=== PATIENT | male | born 1960 | race Caucasian/White ===

== ENCOUNTER → 2020-09-17 14:14 | Outpatient (BNVA) | payer BC, SELFPAY | PROVIDERS: Family Provider Electrodiagnostic Medicine; PCP Electrodiagnostic Medicine; Visit Provider Nurse Practitioner Family | DX: Z20.828 Contact with and (suspected) exposure to other viral communicable diseases (principal) | CPT/HCPCS: 87635 ==

== ENCOUNTER 2020-12-12 19:49 | Emergency (ER) | payer BC, SELFPAY ==
[2020-12-12 20:01] VITALS: BP 146/78; PULSE 119; RESP 16; TEMP 39.3; O2SAT 94; BMI 27.8
[2020-12-12 20:38] VITALS: BP 123/73; PULSE 103; RESP 18; O2SAT 94
--- NOTE | 2020-12-12 20:41 | XRR_ITS ---
PROCEDURE INFORMATION: Exam: XR Chest Exam date and time: 12/12/2020 9:00 PM Age: 60 years old Clinical indication: Fever TECHNIQUE: Imaging protocol: XR of the chest. Views: 1 view. COMPARISON: No relevant prior studies available. FINDINGS: Lungs: Unremarkable. No consolidation. Pleural spaces: Unremarkable. No pleural effusion. No pneumothorax. Heart/Mediastinum: Unremarkable. No cardiomegaly. Bones/joints: Partial visualization of surgical screws fixating proximal left humerus. No acute thoracic fractures. XR/XR chest 1V portable [id number] IMPRESSION: No acute chest findings.
[2020-12-12 20:47] LABS: Basophils % 0.3 %; Hematocrit 45.7 % (42.0-52.0); Hemoglobin 15.2 g/dL (11.7-16.6); Lymphocytes # 0.9 10^3/uL (0.8-4.8); Lymphocytes % 21.9 %; Mean Corpuscular HGB Conc 33.3 g/dL (30.0-36.0); Mean Corpuscular Volume 87.2 fL (80-94); Mean Platelet Volume 9.1 fL (7.4-10.4); Monocytes # 0.3 10^3/uL (0.2-0.9); Monocytes % 8.3 %; Neutrophils # 2.72 10^3/uL (1.8-7.7); Neutrophils % 68.2 %; Nucleated Red Blood Cells % 0 %; Platelet Count 141 10^3/cmm (130-400); Red Blood Count 5.24 10^6/uL (4.1-5.3); Red Cell Distribution Width 12.7 % (12.1-15.1)
[2020-12-12] MEDS: sodium chloride 0.9% 500 ML IV (20:59)
[2020-12-12] MEDS: ketorolac 30 mg/mL INJ IVP (21:00)
[2020-12-12 21:09] VITALS: O2SAT 95
[2020-12-12 21:09] LABS: Lactate (Lactic Acid level) 0.8 mmol/L (0.5-2.2)
[2020-12-12 21:15] LABS: Procalcitonin 0.06 ng/mL (0-0.5)
[2020-12-12 21:29] LABS: ABG PCO2 39.5 mmHg (35-45); Arterial Blood Gas Hematocrit 45.8 % (42-52); Base Excess ABG -0.1 mmol/L (-2.0-2.0); Blood Gas Allen Test Pos; Blood Gas Sample Site Brachial, left; Blood Gas Sample Type Arterial; Carboxyhemoglobin 0.6 %THgb (0.4-20.1); HCO3 ABG 24.6 mmol/L (22-26); HGB O2 Sat 94.1 % (95-100); Methemoglobin 0.7 % (0.4-1.5); Oxygen Device ROOM AIR; PO2 ABG 72.3 mmHg (80.0-100.0); Total Hemoglobin 14.9 g/dL (14-18)
[2020-12-12 21:34] LABS: Add Urine Microscopic? YES; Bilirubin Urine 1+ (Negative); Blood Urine Neg (Negative); Glucose Urine UA 2+ (Normal); Ketones Urine 1+ (Negative); Leukocyte Esterase Urine Negative (Negative); Nitrate Urine Negative (Negative); Protein Urine Trace (Negative); Urine Appearance Clear (CLEAR); Urine Color Yellow (Yellow); Urobilinogen Urine 1 mg/dL (Negative); pH Urine 5 (5-7)
[2020-12-12 21:36] LABS: Alanine Aminotransferase 26 U/L (0-41); Albumin Level 3.7 g/dL (3.5-5.2); Alkaline Phosphatase 45 IU/L (40-130); Anion Gap 17.1 (5-19); Aspartate Amino Transferase 34 U/L (0-40); Blood Urea Nitrogen 14 mg/dL (6-20); C Reactive Protein 36.5 mg/L (0.0-4.9); Calcium 7.8 mg/dL (8.5-10.5); Carbon Dioxide 23 mmol/L (22-29); Chloride 102 mmol/L (98-107); Globulin 2.8 g/dL (1.3-4.6); Glomerular Filtration Rate 86.4 mL/min (90-130); Glucose 100 mg/dL (65-115); Osmolality Calculated 287 mOsm/kg (285-295); Potassium 4.1 mmol/L (3.5-5.1); Sodium 138 mmol/L (136-145); Total Bilirubin 0.2 mg/dL (0.15-1.2); Total Protein 6.5 g/dL (6.6-8.7)
[2020-12-12 21:49] LABS: Add Urine Culture? No; Bacteria Urine TRACE /hpf; Hyaline Casts Urine 0-4 /lpf; Mucus Urine 2+ /hpf; RBC Urine 0-4 /hpf (0-2); Squamous Epithelial Cell Urine 0-4 /hpf (0-5); WBC Urine 0-4 /hpf (0-5)
[2020-12-12] MEDS: dexamethasone 4 mg/mL INJ 6 MG IVP (22:14)
--- NOTE | 2020-12-12 22:17 | W.ED.COVID ---
HPI - COVID General: Chief Complaint: COVID symptoms Stated Complaint: Covid + monday Time Seen by Provider: 12/12/20 20:51 Source: patient Mode of arrival: EMS Limitations: no limitations Triage information: Has fever, cough or shortness of breath. Exposure to COVID + person last 14 days History of Present Illness: HPI Narrative: 60-year-old male who developed symptoms of a fever, body aches, loss of taste and smell about 5 days ago. He had fever of up to 104 ?F. The next day he got tested for COVID-19 and tested positive. His and son also tested positive for the illness. He continues to run fevers that only mildly responsive to antipyretics. No difficulty breathing but he endorses a cough. He has been checking his oxygen saturations and the lowest it has gotten is 92%. The patient has no past medical history, has no history of COPD, has no history of hypertension, has no history of cardiac disease or lung disease. Because he continues to run a fever and feel bad he came to the emergency department to be evaluated. complaint: known COVID positive Prior covid testing: yes, results known Prior testing date: 12/09/20 COVID 19 common symptoms: positive fever(s), chills, cough, non-productive cough, fatigue, body aches, loss of sense of smell and/or taste and nasal congestion; negative productive cough, dyspnea, headache(s), throat pain, nausea, vomiting or diarrhea COVID 19 other sytmptoms: negative requiring oxygen, requiring more oxygen, respiratory distress, cyanosis, confusion or new neurological complaints Onset (ago): day(s) (4) Severity: moderate Treatment prior to arrival: acetaminophen and ibuprofen COVID Results: Nasal/Oral Coronavirus 2019 PCR Not detected 09/17/20 14:14 09/17/20 Review of Systems General: Reports: 10 or more systems reviewed and unremarkable except in HPI and below Const: Reports: fever(s), chills, body aches and fatigue ENMT: Reports: nasal congestion; Denies: throat pain Resp: Reports: non-productive cough; Denies: dyspnea or productive cough GI: Denies: nausea, vomiting or diarrhea Neuro: Denies: headache(s) or confusion Physical Exam Const: COMMON NORMALS: no acute distress, average body habitus, patient oriented x3, no limitations, healthy appearing, alert and well nourished HENMT: COMMON NORMALS: normocephalic, atraumatic and moist oral mucous membranes HEAD & SCALP: normocephalic and atraumatic Neck/C-Spine: COMMON NORMALS: no meningeal signs and no JVD Resp: COMMON NORMALS: normal respiratory effort, No retractions, No use of accessory muscles, clear to auscultation bilaterally and percussion normal AUSCULTATION: clear to auscultation bilaterally PERCUSSION: percussion normal Cardio: COMMON NORMALS: no JVD, regular rate, regular rhythm, S1 normal heart sound present, S2 normal heart sound present, No gallops present (Cardio), No clicks present (Cardio), No murmurs present (Cardio), No rub (Cardio) and Peripheral pulses 2+ throughout RATE: regular rate RHYTHM: regular rhythm HEART SOUNDS: S1 normal heart sound present and S2 normal heart sound present PERIPHERAL PULSES: Peripheral pulses 2+ throughout GI: COMMON NORMALS: Normal to inspection, nondistended, normoactive bowel sounds present, Soft to palpation, non-tender, No hepatosplenomegaly present, no masses and no bruits PALPATION: Yes Soft to palpation and Yes No hepatosplenomegaly present Extremity: COMMON NORMALS: normal to inspection, full ROM, capillary refill normal, no calf tenderness and no pedal edema Neuro: COMMON NORMALS: patient oriented x3 SENSORIUM/ORIENTATION: Yes alert MENINGEAL SIGNS: Yes no meningeal signs Skin: COMMON NORMALS: no rashes or lesions noted, no wounds, turgor normal, no jaundice, no petechiae and no mottling GENERAL SKIN EXAM: no rashes or lesions noted and turgor normal Course Reevaluation(s): Reevaluation #1: Discussed his lab and imaging findings with him, labs unremarkable. Chest x-ray unremarkable. Also discussed that he does not meet criteria for monoclonal antibody treatments. He will therefore be discharged home with a prescription for oral steroids. He voiced understanding and is in agreement with the plan. Time: 22:17 Vital Signs: Vital signs: Vital Signs Temperature 101.5 F H 12/12/20 22:20 Pulse Rate 95 12/12/20 22:20 Respiratory Rate 18 12/12/20 22:20 Blood Pressure 125/79 12/12/20 22:20 Pulse Oximetry 95 12/12/20 22:20 MDM - COVID MDM Narrative: Medical decision making narrative: 60-year-old male was diagnosed with COVID-19 4 days ago, symptoms started 5 days ago. Evaluation here does not show anything concerning, pulse oximetry has been reading 94% on room air throughout his ED stay. He is not requiring oxygen. Unfortunately he does not meet criteria for monoclonal antibody as he has no chronic illness, BMI does not qualify. He is therefore discharged home on conservative measures and with a prescription for dexamethasone. He will follow-up with his primary care provider. Medical Records: Attestation: I reviewed the patient's medical records. Lab Data: Attestation: I reviewed the patient's lab results. Labs: Lab Results 12/12/20 12/12/20 12/12/20 Range/Units 20:35 20:35 20:35 WBC 4.0 (4.0-10.0) 10^3/ uL RBC 5.24 (4.1-5.3) 10^6/u L Hgb 15.2 (11.7-16.6) g/dL Hct 45.7 (42.0-52.0) % MCV 87.2 (80-94) fL MCH 29.0 (28.0-34.0) pg MCHC 33.3 (30.0-36.0) g/dL RDW 12.7 (12.1-15.1) % Plt Count 141 (130-400) 10^3/c mm MPV 9.1 (7.4-10.4) fL Neut % (Auto) 68.2 % Lymph % (Auto) 21.9 % [place] % (Auto) 8.3 % Eos % (Auto) 1.0 % Baso % (Auto) 0.3 % Neut # (Auto) 2.72 (1.8-7.7) 10^3/u L Lymph # (Auto) 0.9 (0.8-4.8) 10^3/u L [place] # (Auto) 0.3 (0.2-0.9) 10^3/u L Eos # (Auto) 0.0 (0.0-0.8) 10^3/u L Baso # (Auto) 0.0 (0.0-0.1) 10^3/u L Nucleated RBC % (a uto) 0 % Nucleated RBCs # 0.0 /100WBC Specimen Type Sample Site ABG pH (7.35-7.45) ABG pCO2 (35-45) mmHg ABG pO2 (80.0-100.0) mmH g ABG HCO3 (22-26) mmol/L ABG Base Excess (-2.0-2.0) mmol/ L Sree Test Hematocrit (42-52) % Hgb O2 Saturation (95-100) % Carboxyhemoglobin (0.4-20.1) %THgb Methemoglobin (0.4-1.5) % Total Hemoglobin (14-18) g/dL O2 Delivery Device FiO2 % Training Assistant ID Sodium 138 (136-145) mmol/L Potassium 4.1 (3.5-5.1) mmol/L Chloride 102 (98-107) mmol/L Carbon Dioxide 23 (22-29) mmol/L Anion Gap 17.1 (5-19) BUN 14 (6-20) mg/dL Creatinine 0.9 (0.7-1.2) mg/dL GFR Calculation 86.4 L (90-130) mL/min Glucose 100 (65-115) mg/dL Calculated Osmolal ity 287 (285-295) mOsm/k g Lactate 0.8 (0.5-2.2) mmol/L Calcium 7.8 L (8.5-10.5) mg/dL Total Bilirubin 0.2 (0.15-1.2) mg/dL AST 34 (0-40) U/L ALT 26 (0-41) U/L Alkaline Phosphata se 45 (40-130) IU/L C-Reactive Protein 36.5 H (0.0-4.9) mg/L Total Protein 6.5 L (6.6-8.7) g/dL Albumin 3.7 (3.5-5.2) g/dL Globulin 2.8 (1.3-4.6) g/dL Procalcitonin 0.06 (0-0.5) ng/mL Urine Color (Yellow) Urine Appearance (CLEAR) Urine pH (5-7) Ur Specific Gravit y (1.005-1.030) Urine Protein (Negative) Urine Glucose (UA) (Normal) Urine Ketones (Negative) Urine Blood (Negative) Urine Nitrate (Negative) Urine Bilirubin (Negative) Urine Urobilinogen (Negative) mg/dL Ur Leukocyte Fartun ase (Negative) Urine RBC (0-2) /hpf Urine WBC (0-5) /hpf Ur Squamous Epith Cells (0-5) /hpf Amorphous Sediment Urine Bacteria (NONE) /hpf Hyaline Casts /lpf Urine Mucus /hpf 12/12/20 12/12/20 Range/Units 21:18 21:26 WBC (4.0-10.0) 10^3/ uL RBC (4.1-5.3) 10^6/u L Hgb (11.7-16.6) g/dL Hct (42.0-52.0) % MCV (80-94) fL MCH (28.0-34.0) pg MCHC (30.0-36.0) g/dL RDW (12.1-15.1) % Plt Count (130-400) 10^3/c mm MPV (7.4-10.4) fL Neut % (Auto) % Lymph % (Auto) % [place] % (Auto) % Eos % (Auto) % Baso % (Auto) % Neut # (Auto) (1.8-7.7) 10^3/u L Lymph # (Auto) (0.8-4.8) 10^3/u L [place] # (Auto) (0.2-0.9) 10^3/u L Eos # (Auto) (0.0-0.8) 10^3/u L Baso # (Auto) (0.0-0.1) 10^3/u L Nucleated RBC % (a uto) % Nucleated RBCs # /100WBC Specimen Type Arterial Sample Site Brachial, left ABG pH 7.40 (7.35-7.45) ABG pCO2 39.5 (35-45) mmHg ABG pO2 72.3 L (80.0-100.0) mmH g ABG HCO3 24.6 (22-26) mmol/L ABG Base Excess -0.1 (-2.0-2.0) mmol/ L Sree Test Pos Hematocrit 45.8 (42-52) % Hgb O2 Saturation 94.1 L (95-100) % Carboxyhemoglobin 0.6 (0.4-20.1) %THgb Methemoglobin 0.7 (0.4-1.5) % Total Hemoglobin 14.9 (14-18) g/dL O2 Delivery Device Room air FiO2 21.0 % Training Assistant ID Jlg Sodium (136-145) mmol/L Potassium (3.5-5.1) mmol/L Chloride (98-107) mmol/L Carbon Dioxide (22-29) mmol/L Anion Gap (5-19) BUN (6-20) mg/dL Creatinine (0.7-1.2) mg/dL GFR Calculation (90-130) mL/min Glucose (65-115) mg/dL Calculated Osmolal ity (285-295) mOsm/k g Lactate (0.5-2.2) mmol/L Calcium (8.5-10.5) mg/dL Total Bilirubin (0.15-1.2) mg/dL AST (0-40) U/L ALT (0-41) U/L Alkaline Phosphata se (40-130) IU/L C-Reactive Protein (0.0-4.9) mg/L Total Protein (6.6-8.7) g/dL Albumin (3.5-5.2) g/dL Globulin (1.3-4.6) g/dL Procalcitonin (0-0.5) ng/mL Urine Color Yellow (Yellow) Urine Appearance Clear (CLEAR) Urine pH 5 (5-7) Ur Specific Gravit y 1.020 (1.005-1.030) Urine Protein Trace (Negative) Urine Glucose (UA) 2+ (Normal) Urine Ketones 1+ H (Negative) Urine Blood Neg (Negative) Urine Nitrate Negative (Negative) Urine Bilirubin 1+ H (Negative) Urine Urobilinogen 1 H (Negative) mg/dL Ur Leukocyte Fartun ase Negative (Negative) Urine RBC 0-4 H (0-2) /hpf Urine WBC 0-4 H (0-5) /hpf Ur Squamous Epith Cells 0-4 H (0-5) /hpf Amorphous Sediment Not Reportable Urine Bacteria Trace (NONE) /hpf Hyaline Casts 0-4 H /lpf Urine Mucus 2+ /hpf Imaging Data: CXR: Attestation: I personally reviewed and interpreted this imaging study as follows: Radiologist's impression: [employer] [place] [address] XRay Report Signed Patient: Tucker Tellez #: [id number] : 2Acc#:[id number] Age/Sex: 60 / MADM Date: 12/12/20 Loc: [facility]/Bed: Attending Dr: Ordering Provider/Ordering MD: Rodney Flores DO Date of Service: 12/12/20 Procedure(s): XR chest 1V portable [id number] Accession Number(s): [id number] Report Number: [id number] PROCEDURE INFORMATION: Exam: XR Chest Exam date and time: 12/12/2020 9:00 PM Age: 60 years old Clinical indication: Fever TECHNIQUE: Imaging protocol: XR of the chest. Views: 1 view. COMPARISON: No relevant prior studies available. FINDINGS: Lungs: Unremarkable. No consolidation. Pleural spaces: Unremarkable. No pleural effusion. No pneumothorax. Heart/Mediastinum: Unremarkable. No cardiomegaly. Bones/joints: Partial visualization of surgical screws fixating proximal left humerus. No acute thoracic fractures. XR/XR chest 1V portable [id number] IMPRESSION: No acute chest findings. Dictated By:Nic Emanuel Signed By:Fritz Emanuel Date/Time:12/12/202204 DD/ 02 COVID Results: Nasal/Oral Coronavirus 2019 PCR Not detected 09/17/20 14:14 09/17/20 Monoclonal Antibody Treatments Inclusion/Exclusion Criteria weight >/= 40 kg and + direct Sars-Cov-2 test less than 7-10 days ago age not >/= 65, BMI not >/= 35, does not have diabetes, does not have CKD, not receiving immunosuppressive therapy, does not have immunosuppressive disease, not >/= 55 with hypertension, not >/= 55 with diabetes, not >/= 55 with COPD/lung disease, not 12-17y with BMI >/= 85th percentile, not 12-17y with heart disease, not 12-17y with sickle cell disease, not 12-17y with neurodevelopemental d/o, not 12-17y with asthma/RAD/lung disease and not 12-17y w/ medical artist dependence not requiring hospitalization, not requiring oxygen (if not chronically on oxygen) and no increase oxygen requirement (if chronically on oxygen) Plan for treatment Does not meet criteria (DO NOT GIVE) Discharge Plan Discharge Patient Disposition: Home Clinical Impression: COVID-19 Condition: Stable Prescriptions: New dexamethasone 6 mg tablet 6 mg PO DAILY Qty: 5 RF: 0 Discharge Orders: Discharge ED (Routine); Ordered 12/12/20 Ordered By: Amanda Ann Referrals: Nader Gray DO [Primary Care Provider] - 1-3 days Discharge Diet: Usual diet Discharge Activity: Increase activity as tolerated Patient Instructions: Viral Syndrome (ED) Activity Restrictions/Additional Instructions: Return for any new or worsening symptoms. Follow-up with your primary care provider within 3 days. You may follow-up with your primary care provider via telemedicine. Take the steroid as prescribed. Continue to check your oxygen levels at home if your oxygen saturation drops below 90% please return to the emergency department to be evaluated as you may need hospital admission or oxygen therapy. Coding Level of Care Code ED Territory Representative for Hillary Castillo
[2020-12-12 22:20] VITALS: BP 125/79; PULSE 95; RESP 18; TEMP 38.6; O2SAT 95
== END 2020-12-12 22:44 | disposition home or self-care (01) ==
PROVIDERS: Emergency Medicine; Emergency Provider Family Medicine; PCP Electrodiagnostic Medicine
DX: U07.1 COVID-19 (principal)
CPT/HCPCS: 36600; 71045; 80053; 81001; 82805; 83605; 84145; 85025; 86140; 96361; 96374; 96375; 99283; J1100; J1885; J7040

== ENCOUNTER 2020-12-18 14:47 | Emergency (ER) | payer BC, SELFPAY ==
[2020-12-18] VITALS (9 sets, daily range): BP systolic 121–139; BP diastolic 77–96; PULSE 89–120; RESP 16–18; TEMP 37.2–37.8; O2SAT 88–98; BMI 26.4
--- NOTE | 2020-12-18 16:08 | XRR_ITS ---
PROCEDURE INFORMATION: Exam: XR Chest Exam date and time: 12/18/2020 4:12 PM Age: 60 years old Clinical indication: Cough and dyspnea and fever; Additional info: Dyspnea/fever/ covid+ TECHNIQUE: Imaging protocol: XR of the chest. Views: 1 view. COMPARISON: CR (CHEST, ) 12/12/2020 8:58 PM FINDINGS: Lungs: Mild nonspecific coarsening of the interstitial markings. Minimal ground-glass infiltrates in the periphery of the lungs, left worse than right. Pleural spaces: Unremarkable. No pleural effusion. No pneumothorax. Heart/Mediastinum: No cardiomegaly. Bones/joints: Unremarkable. XR/XR chest 1V portable [id number] IMPRESSION: 1. Mild nonspecific coarsening of the interstitial markings. Minimal ground-glass infiltrates in the periphery of the lungs, left worse than right. Pulmonary findings are nonspecific, but are compatible with the diagnosis of COVID-19 pneumonia. 2. Lung findings are new/increased when compared to 12/12/2020.
--- NOTE | 2020-12-18 16:09 | ECG_ITS ---
[facility] Test Date: 2020-12-18 Pat Name: Tucker Tellez Department: Room: Gender: Male Line Locator: : 1960 Requested By: Alex Yarbrough Order Number: [id number] Chavis MD: Vamsi Moody M.D. Measurements Intervals Ute Rate: 120 P: 40 UT: 136 QRS: 76 QRSD: 104 T: 39 QT: 303 QTc: 429 Interpretive Statements SINUS TACHYCARDIA ABNORMAL RHYTHM ECG No previous ECG available for comparison Electronically Signed On 12-18-2020 19:13:43 CDT by Vamsi Moody M.D. [email or web address]
--- NOTE | 2020-12-18 16:21 | W.ED.COVID ---
HPI - COVID General: Chief Complaint: COVID symptoms Stated Complaint: POSITIVE FOR COVID Time Seen by Provider: 12/18/20 16:05 Triage information: Has fever, cough or shortness of breath. No known COVID + exposure last 14 days History of Present Illness: HPI Narrative: The patient is a 60-year-old male on his 10th day of having Covid symptoms who comes to the ER complaining of continued productive cough, fever, dehydration, posttussive vomiting. He did not get the antibody because he did not have any comorbidities at his age. He has not been eating or drinking the past few days. He was given a prescription for steroids which she said did not help. No antibiotic. He says he is lost 25 pounds in the past 10 days since his positive test. He was satting 92% in triage however on the walk to the room he dipped to 88% and was placed on 2 L oxygen. MD complaint: known COVID positive Prior covid testing: yes, results known COVID 19 common symptoms: positive fever(s), cough, productive cough, dyspnea, fatigue, body aches, loss of sense of smell and/or taste and nausea; negative headache(s), throat pain or nasal congestion COVID 19 other sytmptoms: positive requiring oxygen; negative chest pain Onset (ago): day(s) (10) Severity: moderate Treatment prior to arrival: acetaminophen (At 6 AM this morning) COVID Results: Nasal/Oral Coronavirus 2019 PCR Not detected 09/17/20 14:14 09/17/20 Review of Systems General: Reports: 10 or more systems reviewed and unremarkable except in HPI and below Const: Reports: fever(s), body aches and fatigue Eyes: Denies: change in vision, blurry vision or eye redness ENMT: Denies: throat pain, swelling of lips/tongue, ear or mastoid pain or nasal congestion Card: Denies: chest pain, palpitations, irregular heart rhythm, edema, dyspnea on exertion or orthopnea Resp: Reports: dyspnea and productive cough GI: Reports: nausea : Denies: flank pain, urinary frequency or urinary urgency Musc: Denies: neck pain, back pain, extremity pain, joint pain, joint redness, limited range of motion or muscle weakness Skin/Breast: Denies: rash, pruritus, erythema, skin pain or skin tenderness Neuro: Denies: headache(s) Psych: Denies: anxiety or depression Endo: Denies: polyuria All/Imm: Denies: urticaria, throat swelling or tongue swelling Physical Exam Const: COMMON NORMALS: no acute distress, average body habitus, patient oriented x3, no limitations, healthy appearing, alert and well nourished GENERAL APPEARANCE: cooperative, comfortable, well kempt and well developed ORIENTATION/CONSCIOUSNESS: Yes awake, Yes oriented to person, Yes oriented to place and Yes oriented to time OTHER: Febrile HENMT: COMMON NORMALS: normocephalic, external ears normal and Normal external nose present HEAD & SCALP: normal to inspection and normocephalic NOSE: Normal external nose present EXTERNAL EAR: Yes external ears normal MOUTH: Normal oral and palatal mucosa present THROAT: posterior oropharynx normal Eye: COMMON NORMALS: Equal, round and reactive pupils present and EOMs intact bilaterally GENERAL EYE: appearance normal, both eyes and all related structures PUPIL: Yes Equal, round and reactive pupils present Neck/C-Spine: COMMON NORMALS: full ROM, no lymphadenopathy, no meningeal signs and no JVD GENERAL: Yes normal visual inspection Lymph: LYMPHATIC: no lymphadenopathy noted Chest: COMMONS NORMALS: normal inspection of the chest and normal palpation of entire chest wall Resp: COMMON NORMALS: normal respiratory effort, No retractions, No use of accessory muscles, clear to auscultation bilaterally and percussion normal EFFORT & INSPECTION: Yes able to speak in complete sentences AUSCULTATION: clear to auscultation bilaterally PERCUSSION: percussion normal Cardio: COMMON NORMALS: no JVD, regular rhythm, S1 normal heart sound present, S2 normal heart sound present and Peripheral pulses 2+ throughout RATE: tachycardic RHYTHM: regular rhythm HEART SOUNDS: S1 normal heart sound present and S2 normal heart sound present PERIPHERAL PULSES: Peripheral pulses 2+ throughout GI: COMMON NORMALS: Normal to inspection, nondistended, normoactive bowel sounds present, Soft to palpation, non-tender and no masses INSPECTION: Yes normal to inspection PALPATION: Yes Soft to palpation : COMMON NORMALS: Yes no CVA tenderness BLADDER/KIDNEY EXAM: Yes no CVA tenderness Back/Pelvis: COMMON NORMALS: no CVA tenderness, thoracic and lumbar spine normal to inspection, no thoracic nor lumbar tenderness and thoraco-lumbar ROM normal Extremity: COMMON NORMALS: normal to inspection, full ROM, capillary refill normal, no joint enlargement and no pedal edema GENERAL: Yes normal exam except as noted Neuro: COMMON NORMALS: patient oriented x3, CN's II-XII intact bilaterally, moves all extremities, no focal motor deficits, no sensory deficits noted and gait normal SENSORIUM/ORIENTATION: Yes alert, Yes oriented to person, Yes oriented to place and Yes oriented to time MENINGEAL SIGNS: Yes no meningeal signs Psych: COMMON NORMALS: mental status grossly normal, Normal thought process present, cooperative, normal affect and speech normal APPEARANCE: Yes well kempt ATTITUDE: Yes calm SPEECH: Yes normal speech THOUGHT PROCESS: Normal thought process present Skin: COMMON NORMALS: no rashes or lesions noted GENERAL SKIN EXAM: no rashes or lesions noted Course Vital Signs: Vital signs: Vital Signs Temperature 99 F 12/18/20 18:42 Pulse Rate 90 12/18/20 20:37 Respiratory Rate 18 12/18/20 20:37 Blood Pressure 121/81 12/18/20 20:37 Pulse Oximetry 96 12/18/20 20:37 MDM - COVID MDM Narrative: Medical decision making narrative: The patient is on his 10th day of Covid symptoms and has swabbed positive. He had been giving a steroid pack earlier in his illness with no improvement of his symptoms. He comes in complaining of continued fever and has not been eating or drinking well the past couple days. He is dehydrated. He was given IV fluids, Tylenol and his fever did go down and his symptoms did improve significantly. He will be given azithromycin and a Medrol Dosepak as his chest x-ray did show Covid pneumonia. CT angiogram negative for significant findings. Lab Data: Labs: Lab Results 12/18/20 12/18/20 12/18/20 Range/Units 16:54 16:54 16:54 WBC 4.6 (4.0-10.0) 10^3/ uL RBC 5.22 (4.1-5.3) 10^6/u L Hgb 14.9 (11.7-16.6) g/dL Hct 45.3 (42.0-52.0) % MCV 86.8 (80-94) fL MCH 28.5 (28.0-34.0) pg MCHC 32.9 (30.0-36.0) g/dL RDW 12.5 (12.1-15.1) % Plt Count 317 (130-400) 10^3/c mm MPV 8.9 (7.4-10.4) fL Neut % (Auto) 65.8 % Lymph % (Auto) 22.7 % [place] % (Auto) 10.0 % Eos % (Auto) 0.4 % Baso % (Auto) 0.2 % Neut # (Auto) 3.04 (1.8-7.7) 10^3/u L Lymph # (Auto) 1.1 (0.8-4.8) 10^3/u L [place] # (Auto) 0.5 (0.2-0.9) 10^3/u L Eos # (Auto) 0.0 (0.0-0.8) 10^3/u L Baso # (Auto) 0.0 (0.0-0.1) 10^3/u L Nucleated RBC % (a uto) 0 % Nucleated RBCs # 0.0 /100WBC D-Dimer (0-0.59) ug/mIFE U Sodium 136 (136-145) mmol/L Potassium 4.1 (3.5-5.1) mmol/L Chloride 102 (98-107) mmol/L Carbon Dioxide 25 (22-29) mmol/L Anion Gap 13.1 (5-19) BUN 12 (6-20) mg/dL Creatinine 0.6 L (0.7-1.2) mg/dL GFR Calculation 137.9 H (90-130) mL/min Glucose 101 (65-115) mg/dL Calculated Osmolal ity 282 L (285-295) mOsm/k g Lactic Acid (0.5-2.2) mmol/L Calcium 8.2 L (8.5-10.5) mg/dL Total Bilirubin 0.5 (0.15-1.2) mg/dL AST 53 H (0-40) U/L ALT 54 H (0-41) U/L Alkaline Phosphata se 44 (40-130) IU/L Troponin T Baselin e 13 (0-15) ng/L Troponin T 120 Min [place] (0-15) ng/L Delta Troponin T (0-10) ABS# Total Protein 6.5 L (6.6-8.7) g/dL Albumin 3.4 L (3.5-5.2) g/dL Globulin 3.1 (1.3-4.6) g/dL 12/18/20 12/18/20 12/18/20 Range/Units 17:50 18:38 18:38 WBC (4.0-10.0) 10^3/ uL RBC (4.1-5.3) 10^6/u L Hgb (11.7-16.6) g/dL Hct (42.0-52.0) % MCV (80-94) fL MCH (28.0-34.0) pg MCHC (30.0-36.0) g/dL RDW (12.1-15.1) % Plt Count (130-400) 10^3/c mm MPV (7.4-10.4) fL Neut % (Auto) % Lymph % (Auto) % [place] % (Auto) % Eos % (Auto) % Baso % (Auto) % Neut # (Auto) (1.8-7.7) 10^3/u L Lymph # (Auto) (0.8-4.8) 10^3/u L [place] # (Auto) (0.2-0.9) 10^3/u L Eos # (Auto) (0.0-0.8) 10^3/u L Baso # (Auto) (0.0-0.1) 10^3/u L Nucleated RBC % (a uto) % Nucleated RBCs # /100WBC D-Dimer 0.63 H (0-0.59) ug/mIFE U Sodium (136-145) mmol/L Potassium (3.5-5.1) mmol/L Chloride (98-107) mmol/L Carbon Dioxide (22-29) mmol/L Anion Gap (5-19) BUN (6-20) mg/dL Creatinine (0.7-1.2) mg/dL GFR Calculation (90-130) mL/min Glucose (65-115) mg/dL Calculated Osmolal ity (285-295) mOsm/k g Lactic Acid 0.8 (0.5-2.2) mmol/L Calcium (8.5-10.5) mg/dL Total Bilirubin (0.15-1.2) mg/dL AST (0-40) U/L ALT (0-41) U/L Alkaline Phosphata se (40-130) IU/L Troponin T Baselin e (0-15) ng/L Troponin T 120 Min [place] 16.55 H (0-15) ng/L Delta Troponin T 3.55 (0-10) ABS# Total Protein (6.6-8.7) g/dL Albumin (3.5-5.2) g/dL Globulin (1.3-4.6) g/dL COVID Results: Nasal/Oral Coronavirus 2019 PCR Not detected 09/17/20 14:14 09/17/20 Discharge Plan Discharge Patient Disposition: Home Clinical Impression: COVID-19, Pneumonia Condition: Stable Prescriptions: New azithromycin 500 mg tablet 500 mg PO DAILY 7 Days RF: 0 albuterol sulfate 90 mcg/actuation HFA aerosol inhaler 2 inh inhalation Q6H PRN (Reason: shortness of breath or wheezing) 30 Days RF: 0 Medrol (Sam) 4 mg tablets,dose pack See Rx Instructions .ROUTE .COMPLEX Qty: 21 RF: 0 No Action promethazine-DM 6.25-15 mg/5 mL syrup 5 ml PO Q4H PRN (Reason: NAUSEA/VOMITING.) RF: 0 amitriptyline 50 mg tablet 50 mg PO DAILY@2100 RF: 0 naproxen 500 mg tablet 500 mg PO BID@0600,1800 RF: 0 Discharge Orders: Discharge ED (Routine); Ordered 12/18/20 Ordered By: Alex Yarbrough Other Ambulatory Orders: DME: Oxygen (Order) Location: None Selected Ordered By: Alex Yarbrough Referrals: Nader Gray DO [Primary Care Provider] - Discharge Diet: Advance as tolerated Discharge Activity: Resume usual activity Patient Instructions: Bacterial Pneumonia (ED), Opioid Safety Activity Restrictions/Additional Instructions: You continue to suffer from COVID-19 and have developed pneumonia from it. Please take the azithromycin as directed and use the albuterol to help you with shortness of breath. I have also written you an order for home oxygen to use. Whenever you walk around your oxygen dips so please use it until you feel better and have been cleared by physician. Follow-up with your primary care physician early next week to monitor improvement of your symptoms and return to the ER with worsening symptoms. Also take the steroid pack to help with your symptoms. Coding Level of Care Code ED Early Education Teacher for Chg Fwd Exam Comprehensive
[2020-12-18] MEDS: sodium chloride 0.9% 1,000 ML 999 ML IV ×2 (16:45→17:53)
[2020-12-18] MEDS: ketorolac 30 mg/mL INJ 15 MG IVP (16:46)
[2020-12-18] MEDS: ondansetron 2 mg/ML SDV 2 mL 4 MG IVP (16:46)
[2020-12-18 17:04] LABS: Basophils % 0.2 %; Eosinophils % 0.4 %; Hematocrit 45.3 % (42.0-52.0); Hemoglobin 14.9 g/dL (11.7-16.6); Lymphocytes # 1.1 10^3/uL (0.8-4.8); Lymphocytes % 22.7 %; Mean Corpuscular HGB Conc 32.9 g/dL (30.0-36.0); Mean Corpuscular Hemoglobin 28.5 pg (28.0-34.0); Mean Corpuscular Volume 86.8 fL (80-94); Mean Platelet Volume 8.9 fL (7.4-10.4); Monocytes # 0.5 10^3/uL (0.2-0.9); Neutrophils # 3.04 10^3/uL (1.8-7.7); Neutrophils % 65.8 %; Nucleated Red Blood Cells % 0 %; Platelet Count 317 10^3/cmm (130-400); Red Blood Count 5.22 10^6/uL (4.1-5.3); Red Cell Distribution Width 12.5 % (12.1-15.1); White Blood Count 4.6 10^3/uL (4.0-10.0)
[2020-12-18] MEDS: acetaminophen 325 mg Tablet 975 MG PO (17:08)
[2020-12-18 17:21] LABS: Alanine Aminotransferase 54 U/L (0-41); Albumin Level 3.4 g/dL (3.5-5.2); Alkaline Phosphatase 44 IU/L (40-130); Blood Urea Nitrogen 12 mg/dL (6-20); Calcium 8.2 mg/dL (8.5-10.5); Carbon Dioxide 25 mmol/L (22-29); Chloride 102 mmol/L (98-107); Globulin 3.1 g/dL (1.3-4.6); Glomerular Filtration Rate 137.9 mL/min (90-130); Glucose 101 mg/dL (65-115); Osmolality Calculated 282 mOsm/kg (285-295); Sodium 136 mmol/L (136-145); Total Bilirubin 0.5 mg/dL (0.15-1.2); Total Protein 6.5 g/dL (6.6-8.7)
[2020-12-18 17:23] LABS: Troponin(5th) Baseline 13 ng/L (0-15)
[2020-12-18 17:24] LABS: Anion Gap 13.1 (5-19); Aspartate Amino Transferase 53 U/L (0-40); Potassium 4.1 mmol/L (3.5-5.1)
--- NOTE | 2020-12-18 18:09 | ECG_ITS ---
[facility] Test Date: 2020-12-18 Pat Name: Tucker Tellez Department: Room: Gender: Male Combine Inspector: : 1960 Requested By: Alex Yarbrough Order Number: [id number] Palmira MD: Vamsi Moody M.D. Measurements Intervals Kress Rate: 95 P: 56 HI: 155 QRS: 74 QRSD: 106 T: 31 QT: 337 QTc: 425 Interpretive Statements SINUS RHYTHM POSSIBLE LEFT ATRIAL ENLARGEMENT [-0.1mV P WAVE IN V1/V2] Compared to ECG 12/18/2020 16:28:40 Sinus tachycardia no longer present Electronically Signed On 12-18-2020 19:16:07 CDT by Vamsi Moody M.D. [id number]
[2020-12-18 18:33] LABS: D Dimer 0.63 ug/mIFEU (0-0.59)
--- NOTE | 2020-12-18 18:36 | CTR_ITS ---
PROCEDURE INFORMATION: Exam: CTA Chest With Contrast Exam date and time: 12/18/2020 7:13 PM Age: 60 years old Clinical indication: Cough and shortness of breath; Patient HX: Covid +. SOB, cough, and elevated d dimer; Additional info: Covid+. Elevated d dimer. R/O pe. TECHNIQUE: Imaging protocol: Computed tomographic angiography of the chest with contrast. 3D rendering (Not supervised by radiologist): MIP and/or 3D reconstructed images were created by the technologist. Radiation optimization: All CT scans at this facility use at least one of these dose optimization techniques: automated exposure control; mA and/or kV adjustment per patient size (includes targeted exams where dose is matched to clinical indication); or iterative reconstruction. Contrast material: OMNI 350; Contrast volume: 82 ml; Contrast route: INTRAVENOUS (IV); COMPARISON: CR XR chest 1V portable [id number] 12/18/2020 4:16 PM RADIATION DOSE METRICS: Total DLP (mGy-cm): 621.94 FINDINGS: Pulmonary arteries: Pulmonary arteries are well opacified. Pulmonary arteries are normal in caliber. No filling defects are demonstrated. No evidence of pulmonary embolism. Aorta: The thoracic aorta appears unremarkable. No aneurysm or dissection demonstrated. Lungs: Diffuse ground-glass infiltrates throughout both lungs. Pleural spaces: No pleural effusion or pneumothorax noted. Heart: No cardiomegaly demonstrated. Lymph nodes: Calcified mediastinal and hilar lymph nodes, consistent with old granulomatous disease. Liver: Less than 5 mm hypodensities in the liver, likely small cysts. Spleen: Small calcified granulomas are noted in the spleen. Bones/joints: No fracture or other acute osseous abnormality. Soft tissues: The soft tissues appear unremarkable. CT/CT angio chest PE protcl [id number] IMPRESSION: 1. Pulmonary arteries appear unremarkable. No evidence of pulmonary embolism. 2. No evidence of thoracic aortic aneurysm or dissection. 3. Diffuse ground-glass infiltrates throughout both lungs. Commonly reported imaging features of COVID-19 pneumonia are present. Other processes such as influenza pneumonia and organizing pneumonia, as can be seen with drug toxicity and connective tissue disease, can cause a similar imaging pattern. (Reference: Cody) 4. Findings of old granulomatous disease are identified. REFERENCES: [place] Sheldon, et al., Radiological Society of [place] Expert Consensus Statement on Reporting Chest CT Findings Related to COVID-19. Endorsed by the Society of Thoracic Radiology, the [place] [employer], and RSNA. Published November 13, 2019. Radiation Dose CTDIVOL = (mGy): DLP = 621.94 (mGy-cm)
[2020-12-18 19:11] LABS: Lactic Sepsis W/Reflex 0.8 mmol/L (0.5-2.2)
[2020-12-18 19:14] LABS: Troponin 5 2HR 16.55 ng/L (0-15); Troponin 5 2HR Delta 3.55 ABS# (0-10)
[2020-12-18] MEDS: iohexol 350 mg/mL 100 mL Btl IV (20:03)
[2020-12-18] MEDS: azithromycin 250 mg Tablet 500 MG PO (21:04)
[2020-12-18] MEDS: dexamethasone 10 mg/mL INJ IVP (21:10)
== END 2020-12-18 21:26 | disposition home or self-care (01) ==
PROVIDERS: Emergency Provider Family Medicine; PCP Electrodiagnostic Medicine
DX: U07.1 COVID-19 (principal); J12.82 Pneumonia due to coronavirus disease 2019
CPT/HCPCS: 36415; 71045; 71275; 80053; 83605; 84484; 85025; 85378; 93005; 96361; 96374; 96375; 99284; J1100; J1885; J2405; J7030; Q0144; Q9967

== ENCOUNTER → 2022-03-08 13:57 | Outpatient (BNVA) | payer BC, SELFPAY | PROVIDERS: PCP Electrodiagnostic Medicine; Referring Provider Electrodiagnostic Medicine; Visit Provider Internal Medicine | DX: R76.8 Other specified abnormal immunological findings in serum (principal); M25.50 Pain in unspecified joint; R53.83 Other fatigue; L40.9 Psoriasis, unspecified | CPT/HCPCS: 72202; 73120; 73562; 82550; 83516; 83735; 84100; 84550; 85651; 86140; 86160; 86162; 86200; 86235; 86255; 86376; 86431; 86704; 86803; 87340 ==

== ENCOUNTER → 2022-08-29 09:46 | Outpatient (BNVA) | payer BC, SELFPAY | PROVIDERS: PCP Electrodiagnostic Medicine; Referring Provider Electrodiagnostic Medicine; Visit Provider Student in an Organized Health Care Education/Training Program | DX: M65.4 Radial styloid tenosynovitis [de Quervain] (principal); M79.642 Pain in left hand | CPT/HCPCS: 73110 ==

== ENCOUNTER → 2022-09-20 07:54 | Day surgery (SDC) | payer BC, SELFPAY ==
[2022-09-12 10:20] VITALS: BMI 29.0
[2022-09-20] VITALS (7 sets, daily range): BP systolic 121–149; BP diastolic 90–98; PULSE 82–90; RESP 11–20; TEMP 36.1–36.4; O2SAT 96–98
--- NOTE | 2022-09-20 08:16 | ANES.PREANE2 ---
Pre-Anesthetic Assessment Height/Weight: Height 1.96 m Weight 111.13 kg Preop Diagnosis: Left de Quervain's disease Operation Date: 09/20/22 13:15 Proposed Procedures p Left wrist first compartment release 51338 and distal radius osteoectomy 91696, M79.643(Left) - Moy House DO s Ostectomy Upper Extremity(Left) - Moy House DO Was Beta Sandra taken within 24 hours: N/A Was Clonidine taken within 24 hours: N/A Social No alcohol and No tobacco Exam alert, oriented x 3, clear to auscultation bilaterally and regular rate & rhythm Airway Submandibular: within normal limits Cervical ROM: within normal limits Dentition: full History/ROS No significant history except as noted and No significant complaints Pulmonary None reported CV/HEM None reported None reported Hepatic None reported GI None reported Metabolic None reported Musc/skel None reported Neuropsych None reported Anesthetic Plan ASA status: 1 Anesthesia: Anesthesia Evaluation and General Risk of > 500 ml blood loss (7ml/kg in children): No Medications/Allergies Home Medications Medication Instructions Recorded Confirmed Last Taken Type amitriptyline 50 mg tablet 50 mg PO DAILY@2100 12/18/20 09/12/22 09/19/22 History naproxen 500 mg tablet 500 mg PO BID@0600,1800 12/18/20 09/12/22 09/12/22 History Allergies Allergy/AdvReac Type Severity Reaction Status Date / Time propoxyphene Allergy ADR-Faintin Verified 09/12/22 10:18 [From Elbert] g [facility] Anesthesia Medical History (Updated 09/02/22 @ 18:32 by Moy House DO) De Quervain's disease (radial styloid tenosynovitis) Surgical History History of shoulder surgery 1990 Family History Other Arthritis CAD (coronary artery disease) Cancer Dementia Diabetes Stroke Denies family history of Chronic kidney disease (CKD) Social History Smoking and tobacco status: never smoked Alcohol intake: current Alcohol intake frequency: 3 or more drinks per day Lives independently: Yes Household members: spouse and children Marital status: Data Anesthesia Cardiac Studies: No Data to Display
--- NOTE | 2022-09-20 08:43 | W.PM.OPSUD ---
Surgery/Procedure H&P Update DATE OF PROCEDURE: September 20, 2022 DATE H&P PERFORMED: 08/29/22 CHANGES TO PREVIOUS DOCUMENTATION: None PREOP DIAGNOSIS: Left de Quervain's disease PRIMARY INDICATION FOR PROCEDURE: Left de Quervain's disease with distal radius bony prominence PLANNED PROCEDURE: Operation Date: 09/20/22 13:15 Proposed Procedures p Left wrist first compartment release 77761 and distal radius osteoectomy 75847, M79.643(Left) - Moy House DO s Ostectomy Upper Extremity(Left) - Moy House DO
[2022-09-20] MEDS: acetaminophen 1,000 MG/100 ML PIGGYBACK 400 MG IV (08:44)
[2022-09-20] MEDS: ketorolac 30 mg/mL INJ IVP (08:44)
[2022-09-20] MEDS: sodium chloride 0.9% 1,000 ML 30 ML IV (08:48)
[2022-09-20] MEDS: ceFAZolin 2,000 MG in sodium chloride 0.9% (plus) 50 ML 100 MG IV (08:55)
[2022-09-20] MEDS: lidocaine 2% INJ 20 mL INJECTION (09:00)
--- NOTE | 2022-09-20 09:52 | P.OP_ITS ---
Operative Report Date of procedure: September 20, 2022 Pre-op diagnosis: Preop Diagnosis Left de Quervain's disease Post-op diagnosis: Left wrist de Quervain's disease, with calcified bony prominence distal radius Procedure done: Left wrist de Quervain's release Left distal radius ostectomy Surgeon: Moy House DO Estimated blood loss: 1 mL 15 minutes IV fluids: 500 mL Complications: None Condition: stable Disposition: same day Brief History: Patient's been seen and worked up in the outpatient setting with findings consistent with left de Quervain's disease. He has noticed a significant bony prominence that severely tender to palpation directly over the first dorsal compartment on x-ray there appears to be a slight bony prominence of the distal radius on the radial aspect. We had detailed discussion with him in the office about these exam findings and his diagnosis. We talked about treatment options at this point time he is failed continued conservative treatment at this point time would like to proceed with surgical intervention. Surgery would recommend a left wrist de Quervain's release and distal radius ostectomy to remove patie nt's bony prominence that is significantly painful. Patient understands the risk benefits complication alternatives surgical and nonsurgical treatment options. He understands his risk for surgery and agrees to proceed with surgical intervention all questions answered at this time. Elects to proceed with surgery consent obtained and signed in the office. Procedure: Patient seen evaluated in the preoperative holding area. Consent was signed and reviewed with patient. Correct extremity marked. Seen evaluated by Anesthesia Department once cleared for surgery was taken back to the operative suite. Patient was then transported onto the OR table in supine position all bony prominences well-padded patient was appropriately secured to the bed. An armboard was then applied to the left upper extremity. A nonsterile tourniquet applied to the left upper arm. He underwent anesthesia per the anesthesia department. Once appropriately anesthetized the left upper extremity was then prepped and draped in standard orthopedic fashion. Final timeout was performed. Patient received appropriate preoperative antibiotics. Esmarch tourniquet was used exsanguinate the left upper extremity. Tourniquet was then insufflated to 250 mmHg. Under sterile technique patient received local anesthetic over the first dorsal compartment at planned incision site for perioperative pain control. A standard longitudinal incision was made directly centered over the first dorsal compartment and centered over patient's radial aspect bony prominence of the distal radius. Mini C arm was brought in to confirm the small bony prominence and its location. I then subsequently made a longitudinal incision centering over the site. Sharp scalpel incision was made strictly through skin. I then switched to Littler dissection scissors and protect the superficial radial nerve branching as well as dorsal veins. This was then appropriately mobilized and direct visualization of the first dorsal compartment was noted. I then switched to deep scalpel and made incision directly over top of the first dorsal compartment. Directly encountered significant synovial fluid and inflammation of the first dorsal compartment tendons. I released the first dorsal compartment to its entirety proximally while protecting my neurovascular structures as well as distally. It was noted the EPL tendon sheath at its own subs sheath and was subsequently released to its entirety under direct visualization loupe magnification. At this point time the tendons were complete ly decompressed and the first dorsal compartment was decompressed. It was noted the patient had significant calcification of the first dorsal compartment sheath that extended into the distal radius bone. I then switched to utilizing scalpel and shelled out the calcified bony prominence off of the distal radius and then utilized a rongeur to smooth this out. This was confirmed with mini C arm to be removed and was confirmed under direct visualization palpation no significant bony prominences were as residual. I then deflated tourniquet. Wound bed was thoroughly irrigated. Hemostasis satisfactory with bipolar electrocautery. I then closed the skin in layered fashion of interrupted 3-0 Vicryl suture in running nylon horizontal mattress stitch. Dressing then covered with Xeroform 4 x 4's ABD Curlex and a soft roll and Colin wrap. Patient was then awakened from anesthesia and taken to PACU in stable condition. Disposition: Patient taken to PACU in stable condition recovering well. Will receive appropriate discharge instruction as well as pain medication postoperatively. We will follow-up with me in the office in 2 weeks. Understands if any questions or concerns and contact the office.
--- NOTE | 2022-09-20 09:52 | PM.OP2 ---
Brief Operative Note Date of procedure: 09/24/22 Pre-op diagnosis: Left wrist de Quervain's disease Post-op diagnosis: same (With calcified bony prominence of distal radius) Procedure Done: Left wrist de Quervain's release Left distal radius ostectomy Surgeon: Moy House Estimated blood loss (mL): 1 Complications: None Post-op Plan: Patient was taken to PACU in stable condition. Patient recovering well. Dressing on in place clean dry and intact. Will receive appropriate discharge instructions as well as pain medication postoperatively. We will have him follow-up with us in the office in 2 weeks. Understands any questions or concerns and contact the office. Condition: stable Disposition: same day Coding Level of Care Code Acute Code for Hillary Castillo
--- NOTE | 2022-09-20 09:52 | PM.PACU ---
PACU note Narrative: Patient recovering well postoperatively. Dressing on in place clean dry and intact. Patient is able to wiggle fingers sensation tact light touch distally. Finger tips warm and well-perfused brisk cap refill less than 2 seconds. Exam: awake Disposition: discharged
--- NOTE | 2022-09-20 10:06 | PC.NURSE ---
Awake. Airway removed
--- NOTE | 2022-09-20 15:59 | ANE.PACU2 ---
Inpatient post-anesthesia follow up: Airway intact: Yes Vital signs: Temperature 97.5 F Pulse Rate 82 Respiratory Rate 18 Blood Pressure 149/98 Pulse Oximetry 96 Oxygen Delivery Me thod Room Air Oxygen Flow Rate 8 Fraction of Inspir ed Oxygen Hydration adequate: Yes Nausea and vomiting: No Pain level: 2 Mental status: Baseline
== END | disposition home or self-care (01) ==
PROVIDERS: PCP Electrodiagnostic Medicine; Visit Provider Student in an Organized Health Care Education/Training Program
PROC: (CPT 25000; 2022-09-20 13:05)
PROC: (CPT 25000; 2022-09-20 13:05)
DX: M65.4 Radial styloid tenosynovitis [de Quervain] (principal)
CPT/HCPCS: 25000; J0131; J0690; J1100; J1885; J2370; J2405; J2704; J2795; J3010; J7030

== ENCOUNTER 2023-06-17 04:47 | Emergency (ER) | payer BC, SELFPAY ==
[2023-06-17] VITALS (7 sets, daily range): BP systolic 104–160; BP diastolic 76–104; PULSE 97–105; RESP 14–20; TEMP 36.6–37.2; O2SAT 93–99; BMI 33.9
--- NOTE | 2023-06-17 05:07 | W.ED.TRAUMA ---
HPI - Trauma General: Chief Complaint: Trauma Stated Complaint: FALL Time Seen by Provider: 06/17/23 04:59 History of Present Illness: 62-year-old male who turned positive on a home COVID-19 test 2 days ago. He presents after syncopal episode at home. He notes that he got up, was quite dizzy and essentially had a syncopal episode. He struck his chin on a bookcase on the way down. He had loss of consciousness briefly. In trying to get up again, he had near syncopal episode that time as well. He denies any chest pain. He complains mainly of right sided mid rib pain and flank pain. He did not have this pain prior to his fall. Associated symptoms: Reports chills, dizziness and nausea; Denies abdominal pain, chest pain, confusion, fever(s), headache(s) or vomiting Review of Systems Const: Reports: chills; Denies: fever(s) or body aches Eyes: Denies: change in vision ENMT: Denies: throat pain Card: Denies: chest pain or palpitations Resp: Reports: dyspnea and non-productive cough; Denies: productive cough or wheezing GI: Reports: nausea; Denies: abdominal pain, vomiting, diarrhea or hematochezia Skin/Breast: Denies: rash Neuro: Reports: weakness in extremities, difficulty walking and dizziness; Denies: headache(s), numbness in extremities, sensory changes, vertigo, confusion, Slurred speech present or difficulty communicating thoughts PFSH ED PFSH: Medical History De Quervain's disease (radial styloid tenosynovitis) Surgical History History of shoulder surgery 1991 Family History Other Arthritis CAD (coronary artery disease) Cancer Dementia Diabetes Stroke Denies family history of Chronic kidney disease (CKD) Social History Smoking and tobacco/nicotine status: never used tobacco/nicotine Alcohol intake: current Alcohol intake frequency: 3 or more drinks per day Substance/Drug Use: never Lives independently: Yes Household members: spouse and children Marital status: Physical Exam Const: COMMON NORMALS: no acute distress GENERAL APPEARANCE: cooperative, lethargic and ill appearing (midly); not frail appearing ORIENTATION/CONSCIOUSNESS: Yes lethargic HENMT: COMMON NORMALS: normocephalic and Normal external nose present HEAD & SCALP: normocephalic; no scalp lesion FACE & SINUS: normal facial exam, face symmetric, laceration (4cm submandibular on left. stellate mental 1cm. ) and Facial tenderness on exam of face and sinuses (mandibular) NOSE: Normal external nose present Eye: COMMON NORMALS: Equal, round and reactive pupils present and EOMs intact bilaterally PUPIL: Yes Equal, round and reactive pupils present Neck/C-Spine: GENERAL: Yes trachea midline Chest: CHEST: Yes Symmetrical chest wall rise Resp: COMMON NORMALS: normal respiratory effort, No retractions, No use of accessory muscles and clear to auscultation bilaterally AUSCULTATION: clear to auscultation bilaterally Cardio: COMMON NORMALS: regular rate and regular rhythm RATE: regular rate RHYTHM: regular rhythm GI: COMMON NORMALS: Normal to inspection, nondistended, normoactive bowel sounds present Extremity: COMMON NORMALS: no pedal edema Neuro: ANNIKA COMA SCALE: document GCS findings Annika coma scale eye opening: Spontaneous Annika coma scale verbal response: Orientated Annika coma scale motor response: Obey commands Annika coma scale total score: 15 SENSORIUM/ORIENTATION: Yes lethargic CRANIAL NERVES: Yes CN normal except as noted SPEECH: speech normal SENSORY EXAM: Yes extremities (intact) MOTOR EXAM: Pronator motor function not present Psych: COMMON NORMALS: speech normal SPEECH: Yes normal speech Skin: COMMON NORMALS: no rashes or lesions noted GENERAL SKIN EXAM: no rashes or lesions noted Procedures Laceration Laceration 1: Site: neck Side (If applicable): right Size (cm): 4 Description: linear Depth: simple, single layer Local Anesthetic: lidocaine 1% and with epi Amount of anesthesia used (mL): 5 Pre-repair: wound explored, irrigated extensively and deep structures intact Skin layer closed with: other (prolene) Size (cm): 5-0 Number of sutures: 5 Laceration 2: Site: face Size (cm): 1 Description: stellate Depth: simple, single layer Local Anesthetic: lidocaine 1% and with epi Amount of anesthesia used (mL): 2 Pre-repair: wound explored Skin layer closed with: other (prolene) Size (cm): 5-0 Number of sutures: 2 Course Vital Signs: Vital signs: Vital Signs Temperature 98 F 06/17/23 08:41 Pulse Rate 105 H 06/17/23 08:41 Respiratory Rate 16 06/17/23 08:41 Blood Pressure 121/76 06/17/23 08:41 Pulse Oximetry 99 06/17/23 08:41 MDM - Trauma Medical Decision Making EKG shows sinus tachycardia without ST changes. Creatinine is 1.6 indicating dehydration. He is rehydrated. CBC is normal. CT of the head andc spine are negative. CTA of the chest, done because of COVID-19 and tachycardia as well as syncope reveals patchy ground glass opacities representing COVID-19. No other acute findings. His troponin did not elevate at two hours. BMP is normal. urinalysis is negative. Lacerations are repaired. he will be allowed discharge home. he is given antivirals for COVID-19 should he choose to take them. Lab Data 06/17/23 05:45 06/17/23 05:45 Radiology Impressions Cervical Spine CT 06/17/23 05:09 IMPRESSION: No acute findings. Chest CTA 06/17/23 05:09 IMPRESSION: 1. There is no evidence for pulmonary emboli. 2. Patchy ground-glass opacities in the lung bases bilaterally could represent a patchy bilateral interstitial pneumonitis although mild pulmonary edema could have this appearance. 3. Punctate calcified splenic granulomas. 4. Small hiatal hernia 5. Two stable hepatic cysts or hemangiomas, the largest seen in the left hepatic lobe measuring 12 mm. No further workup needed. Head CT 06/17/23 05:09 IMPRESSION: No acute intracranial abnormality. Laboratory Results WBC 10.72 10^3/uL (3.29-11.43) 06/17/23 05:45 RBC 5.10 10^6/uL (3.85-5.65) 06/17/23 05:45 Hgb 15.10 g/dL (11.27-16.99) 06/17/23 05:45 Hct 45.6 % (37-53) 06/17/23 05:45 MCV 89.4 fl (82-101) 06/17/23 05:45 MCH 29.6 pg (27-33) 06/17/23 05:45 MCHC 33.1 g/dL (30-55) 06/17/23 05:45 RDW 13.0 % (12.1-15.1) 06/17/23 05:45 Plt Count 199 10^3/cmm (157-399) 06/17/23 05:45 MPV 8.8 fL (7.4-10.4) 06/17/23 05:45 Neut % (Auto) 84.6 % 06/17/23 05:45 Lymph % (Auto) 4.3 % 06/17/23 05:45 [place] % (Auto) 10.0 % 06/17/23 05:45 Eos % (Auto) 0.1 % 06/17/23 05:45 Baso % (Auto) 0.3 % 06/17/23 05:45 Neut # (Auto) 9.07 10^3/uL (1.8-7.7) H 06/17/23 05:45 Lymph # (Auto) 0.5 10^3/uL (0.8-4.8) L 06/17/23 05:45 [place] # (Auto) 1.1 10^3/uL (0.2-0.9) H 06/17/23 05:45 Eos # (Auto) 0.0 10^3/uL (0.0-0.8) 06/17/23 05:45 Baso # (Auto) 0.0 10^3/uL (0.0-0.1) 06/17/23 05:45 Nucleated RBC % (auto) 0 % 06/17/23 05:45 Nucleated RBCs # 0.0 /100WBC 06/17/23 05:45 Sodium 138 mmol/L (136-145) 06/17/23 05:45 Potassium 4.6 mmol/L (3.5-5.1) 06/17/23 05:45 Chloride 102 mmol/L (98-107) 06/17/23 05:45 Carbon Dioxide 27 mmol/L (22-29) 06/17/23 05:45 Anion Gap 13.6 (5-19) 06/17/23 05:45 BUN 17 mg/dL (8-23) 06/17/23 05:45 Creatinine 1.6 mg/dL (0.7-1.2) H 06/17/23 05:45 GFR Calculation 44.2 mL/min (90-130) L 06/17/23 05:45 Glucose 156 mg/dL (65-115) H 06/17/23 05:45 Calculated Osmolality 291 mOsm/kg (285-295) 06/17/23 05:45 Calcium 8.8 mg/dL (8.5-10.5) 06/17/23 05:45 Total Bilirubin 0.7 mg/dL (0.15-1.2) 06/17/23 05:45 AST 26 U/L (0-40) 06/17/23 05:45 ALT 35 U/L (0-41) 06/17/23 05:45 Alkaline Phosphatase 55 U/L (40-130) 06/17/23 05:45 Creatine Kinase 102 U/L (39-308) 06/17/23 05:45 Troponin T Baseline 12 ng/L (0-15) 06/17/23 05:45 Troponin T 120 Minute 11.63 ng/L (0-15) 06/17/23 07:49 Delta Troponin T -0.37 ABS# (0-10) L 06/17/23 07:49 NT-Pro-B Natriuret Pep 36 pg/mL (0-125) 06/17/23 05:45 Total Protein 6.5 g/dL (6.6-8.7) L 06/17/23 05:45 Albumin 4.2 g/dL (3.5-5.2) 06/17/23 05:45 Globulin 2.3 g/dL (1.3-4.6) 06/17/23 05:45 Urine Color Yellow (Yellow) 06/17/23 06:42 Urine Appearance Clear (CLEAR) 06/17/23 06:42 Urine pH 6.5 (5-7) 06/17/23 06:42 Ur Specific [place] 1.000 (1.005-1.030) L 06/17/23 06:42 Urine Protein 1+ (Negative) H 06/17/23 06:42 Urine Glucose (UA) 2+ (Normal) H 06/17/23 06:42 Urine Ketones Negative (Negative) 06/17/23 06:42 Urine Blood Neg (Negative) 06/17/23 06:42 Urine Nitrate Negative (Negative) 06/17/23 06:42 Urine Bilirubin Neg (Negative) 06/17/23 06:42 Urine Urobilinogen Norm mg/dL (Negative) 06/17/23 06:42 Ur Leukocyte Esterase Negative (Negative) 06/17/23 06:42 Urine RBC None /hpf (0-2) 06/17/23 06:42 Urine WBC Rare /hpf (0-5) 06/17/23 06:42 Ur Squamous Epith Cells None /hpf (0-5) 06/17/23 06:42 Amorphous Sediment Trace /hpf 06/17/23 06:42 Urine Bacteria Trace /hpf (NONE) 06/17/23 06:42 Hyaline Casts 0-4 /lpf H 06/17/23 06:42 All radiology interpretation(s) finalized by discharge Discharge Plan Discharge Patient Disposition: Home Clinical Impression: Laceration of face, Syncope, COVID-19, Chest wall contusion Condition: Stable Prescriptions: New Paxlovid 300 mg (150 mg x 2)-100 mg tablets,dose pack See Rx Instructions .ROUTE .COMPLEX Qty: 30 0RF Rx Instructions: take TWO 150 mg tablets of nirmatrelvir with ONE 100 mg tablet of ritonavir twice daily for 5 days hydrocodone-acetaminophen 5-325 mg tablet 1 tab PO Q8H PRN (Reason: pain) Qty: 7 0RF No Action mupirocin 2 % ointment 1 applic topical BID Qty: 15 0RF amitriptyline 50 mg tablet 50 mg PO DAILY@2100 naproxen 500 mg tablet 500 mg PO BID@0600,1800 Discharge Orders: Discharge ED (Routine); Ordered 06/17/23 Ordered By: Rodney Flores Referrals: Nader Gray DO [Primary Care Provider] - 1-3 days Patient Instructions: Syncope (ED), Contusion in Adults (ED), Facial Laceration (ED), COVID-19 (Coronavirus Disease 2019) (ED), Opioid Safety, Pain Management Activity Restrictions/Additional Instructions: Return for worsening chest pain, repeated episodes of syncope or passing out, worsening shortness of breath, other concerning symptoms. Medications as directed. Sutures to be removed in 7 days. Coding Level of Care Code ED Activities Assistant for Hillary Castillo
--- NOTE | 2023-06-17 05:09 | CTR_ITS ---
PROCEDURE INFORMATION: Exam: CTA Chest With Contrast Exam date and time: 06/17/2023 5:26 AM Age: 62 years old Clinical indication: Right-sided; Prior surgery; Surgery date: 6+ months; Surgery type: Left soulder ortho; Patient HX: Syncopal episode with fall at home. Patient fell against a bookcase on way to floor. C/O neck and severe RT rib pain. Covid +. ; Additional info: Cp, syncope, fall, covid + TECHNIQUE: Imaging protocol: Computed tomographic angiography of the chest with contrast. Exam focused on the arteries. 3D rendering (Not supervised by radiologist): MIP and/or 3D reconstructed images were created by the technologist. Radiation optimization: All CT scans at this facility use at least one of these dose optimization techniques: automated exposure control; mA and/or kV adjustment per patient size (includes targeted exams where dose is matched to clinical indication); or iterative reconstruction. Contrast material: OMNI 350; Contrast volume: 70 ml; Contrast route: INTRAVENOUS (IV); REPORTING DATA: Count of CT and Cardiac NM exams in prior 12 months: This patient has received 0 known CTs and 0 known cardiac nuclear medicine studies in the 12 months prior to the current study. COMPARISON: CT angio chest PE protcl [id number] 12/18/2020 8:13 PM RADIATION DOSE METRICS: Total DLP (mGy-cm): 654.51 FINDINGS: Pulmonary arteries: Normal. No pulmonary emboli. Aorta: Unremarkable. No aortic aneurysm. No aortic dissection. Lungs: There are some patchy ground-glass opacities present predominately within the lower hemithoraces, findings that may represent patchy bilateral interstitial pneumonitis. Mild pulmonary edema could have this appearance. Pleural spaces: Unremarkable. No pneumothorax. No pleural effusion. Heart: Unremarkable. No cardiomegaly. No pericardial effusion. Coronary arteries: Minimal coronary artery calcifications. Lymph nodes: Unremarkable. No enlarged lymph nodes. Diaphragm: There is a small hiatal hernia. Liver: There is a stable 11 mm hypoattenuation lesions seen within the right hepatic lobe likely representing a tiny cyst or hemangioma. A 2nd stable hypoattenuation lesions seen in the left lobe measuring 12 mm. Spleen: Punctate calcifications are seen in the spleen compatible calcified granulomas. Bones/joints: Unremarkable. No acute fracture. Soft tissues: Unremarkable. CT/CT angio chest PE protcl [id number] IMPRESSION: 1. There is no evidence for pulmonary emboli. 2. Patchy ground-glass opacities in the lung bases bilaterally could represent a patchy bilateral interstitial pneumonitis although mild pulmonary edema could have this appearance. 3. Punctate calcified splenic granulomas. 4. Small hiatal hernia 5. Two stable hepatic cysts or hemangiomas, the largest seen in the left hepatic lobe measuring 12 mm. No further workup needed.
--- NOTE | 2023-06-17 05:09 | CTR_ITS ---
PROCEDURE INFORMATION: Exam: CT Cervical Spine Without Contrast Exam date and time: 06/17/2023 5:22 AM Age: 62 years old Clinical indication: Injury or trauma; Blunt trauma; Patient HX: Syncopal episode with fall at home. Patient fell against a bookcase on way to floor. C/O neck and severe RT rib pain. Covid +. ; Additional info: Syncope, fall, neck pain TECHNIQUE: Imaging protocol: Computed tomography of the cervical spine without contrast. Radiation optimization: All CT scans at this facility use at least one of these dose optimization techniques: automated exposure control; mA and/or kV adjustment per patient size (includes targeted exams where dose is matched to clinical indication); or iterative reconstruction. REPORTING DATA: Count of CT and Cardiac NM exams in prior 12 months: This patient has received 0 known CTs and 0 known cardiac nuclear medicine studies in the 12 months prior to the current study. COMPARISON: CT head wo con* [id number] 06/17/2023 5:19 AM RADIATION DOSE METRICS: Total DLP (mGy-cm): 558.87 FINDINGS: Bones/joints: No acute fracture. Normal alignment. There is [id number] multilevel degenerative disease and spondylosis. Lungs: Lung apices are normal. Soft tissues: Unremarkable. CT/CT cervical spin wo con* [id number] IMPRESSION: No acute findings.
--- NOTE | 2023-06-17 05:09 | CTR_ITS ---
PROCEDURE INFORMATION: Exam: CT Head Without Contrast Exam date and time: 06/17/2023 5:19 AM Age: 62 years old Clinical indication: Injury or trauma; Blunt trauma (contusions or hematomas); Syncope and collapse; Patient HX: Syncopal episode with fall at home. Patient fell against a bookcase on way to floor. C/O neck and severe RT rib pain. Covid +. ; Additional info: Syncope, fall TECHNIQUE: Imaging protocol: Computed tomography of the head without contrast. Radiation optimization: All CT scans at this facility use at least one of these dose optimization techniques: automated exposure control; mA and/or kV adjustment per patient size (includes targeted exams where dose is matched to clinical indication); or iterative reconstruction. REPORTING DATA: Count of CT and Cardiac NM exams in prior 12 months: This patient has received 0 known CTs and 0 known cardiac nuclear medicine studies in the 12 months prior to the current study. COMPARISON: No relevant prior studies available. RADIATION DOSE METRICS: Total DLP (mGy-cm): 1205.94 FINDINGS: Brain: There is no evidence of acute parenchymal hemorrhage, extra-axial collection, or acute infarction. There is no mass effect, midline shift, or downward herniation. Cerebral ventricles: No ventriculomegaly. Paranasal sinuses: Visualized sinuses are unremarkable. No fluid levels. Mastoid air cells: Visualized mastoid air cells are well aerated. Bones/joints: Unremarkable. No acute fracture. Soft tissues: Unremarkable. CT/CT head wo con* [id number] IMPRESSION: No acute intracranial abnormality.
--- NOTE | 2023-06-17 05:09 | ECG_ITS ---
[facility] Test Date: 2023-06-17 Pat Name: Tucker Tellez Department: Room: Gender: Male Group Contract Analyst: : 1960 Requested By: Rodney Barragan Order Number: [id number] Palmira MD: Vamsi Moody M.D. Measurements Intervals [place] Rate: 101 P: 34 [place]: 140 QRS: 79 QRSD: 108 T: 36 QT: 328 QTc: 425 Interpretive Statements SINUS TACHYCARDIA Compared to ECG 12/18/2020 18:09:20 Sinus rhythm no longer present Electronically Signed On 06-17-2023 11:14:56 CDT by Vamsi Moody M.D. [email or web address] [facility] [id number]
[2023-06-17] MEDS: iohexol 350 mg/mL 500 mL Btl (per mL) IV (05:40)
[2023-06-17 05:52] LABS: Basophils % 0.3 %; Eosinophils % 0.1 %; Hematocrit 45.6 % (37-53); Lymphocytes # 0.5 10^3/uL (0.8-4.8); Lymphocytes % 4.3 %; Mean Corpuscular HGB Conc 33.1 g/dL (30-55); Mean Corpuscular Hemoglobin 29.6 pg (27-33); Mean Corpuscular Volume 89.4 fl (82-101); Mean Platelet Volume 8.8 fL (7.4-10.4); Monocytes # 1.1 10^3/uL (0.2-0.9); Neutrophils # 9.07 10^3/uL (1.8-7.7); Neutrophils % 84.6 %; Nucleated Red Blood Cells % 0 %; Platelet Count 199 10^3/cmm (157-399); White Blood Count 10.72 10^3/uL (3.29-11.43)
[2023-06-17] MEDS: sodium chloride 0.9% 1,000 ML 999 ML IV (06:18)
[2023-06-17 06:20] LABS: Troponin(5th) Baseline 12 ng/L (0-15)
[2023-06-17 06:29] LABS: Alanine Aminotransferase 35 U/L (0-41); Albumin Level 4.2 g/dL (3.5-5.2); Alkaline Phosphatase 55 U/L (40-130); Anion Gap 13.6 (5-19); Aspartate Amino Transferase 26 U/L (0-40); Blood Urea Nitrogen 17 mg/dL (8-23); Calcium 8.8 mg/dL (8.5-10.5); Carbon Dioxide 27 mmol/L (22-29); Chloride 102 mmol/L (98-107); Creatine Phosphokinase 102 U/L (39-308); Globulin 2.3 g/dL (1.3-4.6); Glomerular Filtration Rate 44.2 mL/min (90-130); Glucose 156 mg/dL (65-115); NT Pro B Type Natriuretic Pept 36 pg/mL (0-125); Osmolality Calculated 291 mOsm/kg (285-295); Potassium 4.6 mmol/L (3.5-5.1); Sodium 138 mmol/L (136-145); Total Bilirubin 0.7 mg/dL (0.15-1.2); Total Protein 6.5 g/dL (6.6-8.7)
[2023-06-17] MEDS: morphine 4 mg/mL SDV 1 mL IVP (06:34)
[2023-06-17] MEDS: ondansetron 2 mg/ML SDV 2 mL 4 MG IVP (06:34)
[2023-06-17 07:08] LABS: Add Urine Microscopic? YES; Bilirubin Urine Neg (Negative); Blood Urine Neg (Negative); Glucose Urine UA 2+ (Normal); Ketones Urine Negative (Negative); Leukocyte Esterase Urine Negative (Negative); Nitrate Urine Negative (Negative); Protein Urine 1+ (Negative); Urine Appearance Clear (CLEAR); Urine Color Yellow (Yellow); Urobilinogen Urine Norm (Negative); pH Urine 6.5 (5-7)
[2023-06-17 07:09] LABS: Bacteria Urine TRACE /hpf; WBC Urine RARE /hpf (0-5)
--- NOTE | 2023-06-17 07:09 | ECG_ITS ---
[facility] Test Date: 2023-06-17 Pat Name: Tucker Tellez Department: Room: Gender: Male Procedures Analyst: : 1960 Requested By: Rodney Barragan Order Number: [id number] Palmira MD: Vamsi Moody M.D. Measurements Intervals [place] Rate: 98 P: 62 CO: 162 QRS: 77 QRSD: 119 T: 48 QT: 341 QTc: 437 Interpretive Statements SINUS RHYTHM MODERATE INTRAVENTRICULAR CONDUCTION DELAY [110+ ms QRS DURATION] Compared to ECG 06/17/2023 05:00:22 Intraventricular conduction delay now present Sinus tachycardia no longer present Electronically Signed On 06-17-2023 11:15:10 CDT by Vamsi Moody M.D. [id number]
[2023-06-17 07:10] LABS: Amorphous Sediment Urine TRACE /hpf; Hyaline Casts Urine 0-4 /lpf
[2023-06-17 07:11] LABS: Add Urine Culture? No
[2023-06-17] MEDS: tetanus-dipt-pertussis 0.5 mL SDV IM (07:56)
[2023-06-17 08:33] LABS: Troponin 5 2HR 11.63 ng/L (0-15); Troponin 5 2HR Delta -0.37 ABS# (0-10)
== END 2023-06-17 08:42 | disposition home or self-care (01) ==
PROVIDERS: Emergency Provider Emergency Medicine; PCP Electrodiagnostic Medicine
DX: R55 Syncope and collapse (principal); S20.219A Contusion of unspecified front wall of thorax, initial encounter; S01.81XA Laceration without foreign body of other part of head, initial encounter; U07.1 COVID-19; W18.39XA Other fall on same level, initial encounter; Z23 Encounter for immunization
CPT/HCPCS: 12002; 12011; 36415; 70450; 71275; 72125; 80053; 81001; 82550; 83880; 84484; 85025; 90715; 93005; 96361; 96374; 96375; 99285; J2270; J2405; J7030; Q9967